=== PATIENT | male | born 1980 | race Caucasian/White ===

== ENCOUNTER 2017-02-20 21:49 | Emergency (ER) | payer MEDICAID ==
[~2017-02-20] VITALS: Ht 175.3 cm; Wt 70.5 kg
[2017-02-21] MEDS ORDERED: BACITRACIN 0.9 GM PACKET OINTMENT TP ONE
[2017-02-21] MEDS ORDERED: PERTUSS(ACELL),DIPH,TET VAC/PF 0.5 ML VIAL IM ONE
[2017-02-21] MEDS ORDERED: BUPIVACAINE HCL/PF 0.25% 10 ML VIAL INJ ONE
[2017-02-21 05:13] VITALS: BP 119/81
== END 2017-02-21 05:15 | disposition home or self-care (01) ==
LOC: EMS 21:53
DX: S01.81XA Laceration without foreign body of other part of head, initial encounter (principal); F10.129 Alcohol abuse with intoxication, unspecified; F17.210 Nicotine dependence, cigarettes, uncomplicated; Y90.8 Blood alcohol level of 240 mg/100 ml or more; W01.198A Fall on same level from slipping, tripping and stumbling with subsequent striking against other object, initial encounter; Y93.89 Activity, other specified; Y92.89 Other specified places as the place of occurrence of the external cause; Y99.8 Other external cause status
CPT/HCPCS: 12013; 36415; 70450; 70486; 90471; 90715; 99285; 99406; G0480; J3490

== ENCOUNTER 2017-02-26 15:37 | Emergency (ER) | payer MEDICAID ==
[~2017-02-26] VITALS: Ht 170.2 cm; Wt 72.5 kg
[2017-02-26 17:10] VITALS: BP 135/84
== END 2017-02-26 18:10 | disposition home or self-care (01) ==
LOC: EMS 15:44
DX: S01.112D Laceration without foreign body of left eyelid and periocular area, subsequent encounter (principal); R03.0 Elevated blood-pressure reading, without diagnosis of hypertension; F17.210 Nicotine dependence, cigarettes, uncomplicated; X58.XXXD Exposure to other specified factors, subsequent encounter
CPT/HCPCS: 99282